=== PATIENT | male | born 1965 | race Caucasian/White ===

== ENCOUNTER 2024-06-05 16:46 | Emergency (ER) | payer BC, SELFPAY ==
[2024-06-05 16:49] VITALS: BP 128/84
[2024-06-05 17:26] LABS: % Basophils 0.7 % (0-2); % Eosinophils 1.7 % (0-6); % Immature Granulocytes 0.4 % (0-0.5); % Lymphocytes 25.7 % (20.5-51.1); % Monocytes 12.6 % (1.7-9.3); % Neutrophils 58.9 % (42.2-75.2); Absolute Eosinophils 0.1 10^3/uL (0-0.7); Absolute Lymphocytes 1.2 10^3/uL (1.2-3.4); Absolute Monocytes 0.6 10^3/uL (0.1-0.6); Absolute Neutrophils 2.7 10^3/uL (1.4-6.5); Hematocrit 46.4 % (39.0-52.0); Hemoglobin 15.1 g/dL (13.0-18.0); Mean Corp Hgb Conc. 32.5 g/dL (33.0-37.0); Mean Corpuscular Hgb 28.2 pg (27.0-31.0); Mean Corpuscular Volume 86.7 fL (80.0-94.0); Mean Platelet Volume 10.1 fL (7.4-10.4); Nucleated Red Blood Cells % 0 % (-); Platelet Count 203 10^3/uL (130-400); Red Blood Cell Count 5.35 10^6/uL (4.70-6.10); Red Cell Dist. Width 15.6 % (11.5-14.5); White Blood Cell Count 4.6 10^3/uL (4.8-10.8)
[2024-06-05 17:30] VITALS: BMI 35.2
[2024-06-05 17:31] VITALS: BP 148/94
[2024-06-05 17:33] LABS: ALT (SGPT) 54 U/L (0-50); AST (SGOT) 42 U/L (17-59); Albumin 4.2 g/dl (3.5-5.0); Alkaline Phosphatase 74 U/L (38-126); Blood Urea Nitrogen 16 mg/dl (9-20); Calcium 9.6 mg/dl (8.4-10.2); Carbon Dioxide 30 mmol/L (22-30); Chloride 100 mmol/L (98-107); Glucose 101 mg/dl (70-99); Potassium 3.5 mmol/L (3.5-5.1); Sodium 138 mmol/L (135-145); Total Bilirubin 0.6 mg/dl (0.2-1.3); Total Protein 6.6 g/dl (6.3-8.2)
[2024-06-05 17:44] LABS: Urine Albumin Negative (Neg - Trace); Urine Bilirubin Negative (Negative); Urine Character Clear (Clear); Urine Color Yellow; Urine Glucose Negative (Negative); Urine Ketone Negative (Negative); Urine Leukocyte Negative (Negative); Urine Nitrite Negative (Negative); Urine Occult Blood 4+ (Negative); Urine Urobilinogen Negative (Neg - 1+)
[2024-06-05 18:05] LABS: Urine Red Blood Cell 70-80 /HPF (0-2)
[2024-06-05 18:55] VITALS: BP 144/91
[2024-06-05 19:00] VITALS: BP 144/91
[2024-06-05 19:53] VITALS: BP 161/96
[2024-06-05 19:56] VITALS: BP 148/91
--- NOTE | 2024-06-05 20:34 | ED.GENMED ---
History of Present Illness
General
Chief Complaint: Male Genito-Urinary Symptoms
Time Seen by Provider: 06/05/24 17:36
History of Present Illness
History of Present Illness:
58-year-old male presents the emergency department for evaluation of grossly bloody urine. Feels as though it may have started yesterday however today it worsened and he is passing blood clots. Reports urinary urgency and frequency but denies any
difficulty voiding. Also reports bilateral low back pain. No fevers or chills. Does not take cholesterol medication and denies any recent severe exertion.
Past History
Past History
ED Past Medical History: HTN, Psychiatric (Severe panic attacks) and Other (DVT)
ED Past Surgical History: Orthopedic (R TKA)
Social History
Tobacco: Non-smoker
Alcohol: None
Drug: None
Personal:
Living: with family
Review of Systems
Review of Systems
Allergies reviewed?: Yes
All Other Systems: ROS reviewed and negative except as documented in HPI and ROS
Phy Exam
Physical Exam
Physical Exam:
GEN: Well appearing, NAD, WDWN
HEENT: Oral mucosa moist, no scleral icterus
Cardiac: Regular rate
Lung: No respiratory distress, no tachypnea
Abdomen: Soft, nontender
MSK: No gross deformity or injuries
Skin: Good color, no pallor or jaundice, no rashes
Neuro: AO x3, moves all extremities freely
Psych: Calm, cooperative
Course
Orders/Labs/Results
Orders:
Orders
06/05/24 17:02
Complete Blood Count/With Diff Urgent
Comprehensive Metabolic Panel Urgent
06/05/24 17:34
Urinalysis Reflex To Culture Urgent
Date Specimen was Collected: 06/05/24
Time Specimen was Collected: 16:53
Urine Microscopic Reflex Cult Urgent
06/05/24 17:57
CT Abd/pel Without Iv Or Oral Urgent
Comment:
Reason For Exam: BL flank pain/hematuria
06/05/24 20:34
Cefdinir [Omnicef] 300 mg PO NOW STA
Abnormal Lab Results
06/05/24 06/05/24
17:02 17:34
WBC 4.6 L 10^3/uL
(4.8-10.8)
MCHC 32.5 L g/dL
(33.0-37.0)
RDW 15.6 H %
(11.5-14.5)
Monocytes % 12.6 H %
(1.7-9.3)
Creatinine 1.5 H mg/dL
(0.7-1.3)
Glucose 101 H mg/dl
(70-99)
ALT 54 H U/L
(0-50)
Ur Occult Blood Reflex 4+ A
(Negative)
Urine RBC 70-80 A /HPF
(0-2)
06/05/24 17:02
06/05/24 17:02
Vital Signs
Initial and Last Documented VS:
Initial Vital Signs
Temp Pulse Resp BP Pulse Ox
98.1 F 105 18 128/84 96
06/05/24 16:49 06/05/24 16:49 06/05/24 16:49 06/05/24 16:49 06/05/24 16:49
Last Documented Vital Signs
Temp Pulse Resp BP Pulse Ox
98.4 F 82 18 148/91 96
06/05/24 19:00 06/05/24 19:56 06/05/24 20:00 06/05/24 19:56 06/05/24 20:00
MDM/Problems Addressed
MDM/Problems Addressed:
Likely hemorrhagic cystitis. Patient with less than 100 mL on postvoid residual. CT shows no evidence of obstructive uropathy. Will treat with broad-spectrum antibiotics
*Critical Care Note
Total Time (30-74mins, 75-104mins- exclusive of procedures): Not Applicable
ED Attending Note
-
Portions of this chart may have been created with voice recognition software.� Occasional wrong word or��sound alike� substitutions may have occurred due to the inherent limitations of voice recognition software.
Discharge Plan
Departure
Patient Disposition: Home (Routine Discharge)
Date of Disposition: 06/05/24
Time of Disposition: 20:35
Patient with high blood pressure during this ER visit?: No
Discharge Problem:
Acute hemorrhagic cystitis
Instructions: Blood in the Urine (Hematuria), Adult (DC)
Prescriptions:
New
cefdinir 300 mg capsule
300 mg PO BID Qty: 14 0RF
No Action
Flonase Nasal [place]:
intranasal DAILY
Klonopin
PO HS
Lisinopril
PO DAILY
Wellbutrin Regular Release:
PO DAILY
Zoloft
PO DAILY
prednisone 20 MG tablet
20 mg PO DAILY Qty: 6 0RF
Rx Instructions:
two tablets once a day for 3 days
amlodipine [Norvasc] 5 MG tablet
5 mg PO DAILY Qty: 14 0RF
Referrals:
Kiko Webster DO [Family Provider] -
Gee Flanagan MD [Active] -
Activity Restrictions/Additional Instructions:
I expect your bloody urine to resolve with the antibiotics however if it does not follow-up with urology for further evaluation
Your CT scan showed an incidental cyst on your liver that should get an outpatient follow-up MRI for further clarification
Interventions
Interventions:
*Risk Screen - Suicide Last Done: 06/05/24 16:52
*General Assessment Last Done: 06/05/24 16:52
*Neglect/Abuse Screening Last Done: 06/05/24 16:52
ED- Fall Risk Assessment Last Done: 06/05/24 17:30
*ED COVID-19 Vaccine History Last Done: 06/05/24 17:30
*Nursing Disposition Last Done: 06/05/24 20:38
ED-Male Genitourinary Assessment Last Done: 06/05/24 19:05
Discharge Date and Time
Print Language: MAORI
[2024-06-05] MEDS: OMNICEF 300 MG PO (20:37)
== END 2024-06-05 20:40 | disposition home or self-care (01) ==
LOC: EMR 16:46
PROVIDERS: Student in an Organized Health Care Education/Training Program; EMERGENCY PHYSICIAN Emergency Medicine; FAMILY PHYSICIAN Family Medicine
DX: N30.01 Acute cystitis with hematuria (principal); I10 Essential (primary) hypertension; Z86.718 Personal history of other venous thrombosis and embolism; Z96.659 Presence of unspecified artificial knee joint
CPT/HCPCS: 99284; 74176; 80053; 81003; 81015; 85025

== ENCOUNTER 2025-07-06 20:01 | Emergency (ER) | payer BC, SELFPAY ==
[2025-07-06 20:08] VITALS: BP 180/106
[2025-07-06 20:27] VITALS: BP 134/85
[2025-07-06 21:00] LABS: Hematocrit 50.8 % (39.0-52.0); Hemoglobin 17.2 g/dL (13.0-18.0); Mean Corp Hgb Conc. 33.9 g/dL (33.0-37.0); Mean Corpuscular Volume 89.1 fL (80.0-94.0); Nucleated Red Blood Cells % 0 % (-); Platelet Count 143 10^3/uL (130-400); Red Cell Dist. Width 16.4 % (11.5-14.5)
--- NOTE | 2025-07-06 21:06 | ED.GENMED ---
History of Present Illness
General
Chief Complaint: Chest Pain
Source: patient and records
Time Seen by Provider: 07/06/25 20:27
History of Present Illness
History of Present Illness:
59-year-old male with past medical history of hypertension presenting to the emergency department for evaluation of chest pain which he developed earlier today while laying down, was at the dentist at the time and his blood pressure was noted to be
elevated at around 190/130. Patient states for the last few weeks his blood pressure has been elevated and then after taking his medication will often go back down to a normal level. He states that again this evening when he went to go outside to
his car he noticed the pain. He reports playing [employer] with his son earlier today and was symptom-free at that time. Patient saw his bath steward/stewardess a few weeks ago and was started on prazosin, was told his EKG looked normal and that he could
return to the bath steward/stewardess in 1 year for regular follow-up. Presently patient states his symptoms are significantly improved, it was noted on arrival that his blood pressure was also significantly improved. He denies any shortness of breath,
visual disturbances, focal weakness or numbness, abdominal pain, nausea, vomiting, current headache or any other concerns. Patient did take all of his medications prior to arrival, notes that he normally takes these medications prior to bedtime.
Based off record review patient has had 2 exercise stress tests within the last 4 years with no abnormalities found. Also of note, patient is in the process of workup for possible rheumatologic condition, takes prednisone daily for joint pain, no
specified etiology at this time per patient after workup with rheumatology
Past History
Past History
ED Past Medical History: HTN, Psychiatric (Severe panic attacks) and Other (DVT)
ED Past Surgical History: Orthopedic (R TKA)
Social History
Tobacco: Non-smoker
Alcohol: None
Drug: None
Personal:
Living: with family
Review of Systems
Review of Systems
All Other Systems: ROS reviewed and negative except as documented in HPI and ROS
Phy Exam
Physical Exam
Physical Exam:
GENERAL: Alert , in no apparent distress
HEAD: Normocephalic atraumatic
EYE: conjunctiva clear
NECK: Supple
ENT: o/p clr, mmm.
CARDIAC: Regular rate and rhythm
LUNGS: Clear breath sounds bilaterally, no acute respiratory distress, no wheezes/rales/rhonchi
NEUROLOGICAL: Alert and oriented
SKIN: Warm and dry, skin intact.
MUSCULOSKELETAL: well perfused.
PSYCH: Normal and appropriate interaction.
Scores
Heart Failure Risk
Heart Failure Risk Score: Not Applicable
Heart Score for Chest Pain Patients
STEMI patient?: No
History: Slightly or Non-Suspicious
ECG: Normal
Age: >45 - <65 years
Risk Factors: 1 or 2 Risk Factors
Troponin: </= Normal Limit
Heart Score for Chest Pain Patients: 2
Heart Score Risk: 2.5% MACE over next 6 weeks
Withdrawal Assessment of Alcohol
Withdrawal Assessment Completed?: Not applicable
Course
Orders/Labs/Results
Orders:
Orders
07/06/25 20:07
Electrocardiogram (*1) Urgent
Reason for Study: Chest Pain
Other Reason for Exam: sob
EKG- Treatment ONCE
07/06/25 20:42
CMP [Comprehensive Metabolic Panel] Urgent
Troponin I Urgent
07/06/25 20:43
Complete Blood Count/With Diff Urgent
07/06/25 20:46
CR Chest - 2 Views Urgent
Comment:
Reason For Exam: chest pain
07/06/25 23:05
Troponin I Urgent
07/06/25 23:06
Electrocardiogram (*1) Urgent
Reason for Study: Chest Pain
EKG- Treatment ONCE
Abnormal Lab Results
07/06/25 07/06/25
20:42 20:43
RDW 16.4 H %
(11.5-14.5)
MPV 11.3 H fL
(7.4-10.4)
Abs Immat Gran (auto) 0.1 H 10^3/uL
(0-0.05)
Absolute Neuts (auto) 6.9 H 10^3/uL
(1.4-6.5)
Absolute Lymphs (auto) 1.0 L 10^3/uL
(1.2-3.4)
Absolute Monos (auto) 0.8 H 10^3/uL
(0.1-0.6)
Immature Gran % 0.7 H %
(0-0.5)
Neutrophils % 77.6 H %
(42.2-75.2)
Lymphocytes % 11.6 L %
(20.5-51.1)
Monocytes % 9.5 H %
(1.7-9.3)
Carbon Dioxide 32 H mmol/L
(22-30)
BUN 24 H mg/dl
(9-20)
Glucose 109 H mg/dl
(70-99)
ALT 52 H U/L
(0-50)
07/06/25 20:43
07/06/25 20:42
Vital Signs
Initial and Last Documented VS:
Initial Vital Signs
Temp Pulse Resp BP Pulse Ox
97.8 F 90 26 180/106 95
07/06/25 20:08 07/06/25 20:08 07/06/25 20:08 07/06/25 20:08 07/06/25 20:08
Last Documented Vital Signs
Temp Pulse Resp BP Pulse Ox
97.8 F 78 12 141/83 95
07/06/25 20:08 07/06/25 23:57 07/06/25 23:57 07/06/25 23:04 07/06/25 23:57
MDM/Problems Addressed
Differential Diagnosis Includes:
Uncontrolled hypertension
Hypertensive urgency
ACS/NSTEMI
PE/Dissection
Anxiety
GERD
Gastritis
MDM/Problems Addressed:
59-year-old male presenting to the emergency department for evaluation of elevated blood pressure and chest pain over the last few days, blood pressure has been elevated over the last few weeks. [facility] had added medication to patient's
regimen which he reports compliance with. Took medications prior to arrival and blood pressure is significantly improved presently. Patient symptoms are also mostly resolved. Will check labs including troponin, chest x-ray and reassess.
Discussed with patient that he would likely need to follow-up closely with cardiology to have blood pressure rechecked as well as to see if he will need any further testing although based off of patient's last stress test he had normal workup at
that time.
Chronic conditions affecting care: HTN
Acute Exacerbation and/or Progression of Chronic Illness: HTN
*Radiology
Radiology exam reviewed: preliminary read by ED provider (Normal chest x-ray)
*Pulse Oximetry
SaO2: 96
Oxygen Mode of Delivery: Room air
Patient hypoxic: no
*Reshipping Clerk Interpretation
Rate: normal
Heart Rate: 88
Rhythm: sinus
*Critical Care Note
Total Time (30-74mins, 75-104mins- exclusive of procedures): Not Applicable
Patient Management
Social determinants of health affecting care: Strong social support
Escalation/DeEscalation of care consider admission/obs:
Patient resting comfortably and in no acute distress. On multiple reevaluations his blood pressure remained significantly improved. Repeat EKG unchanged and his repeat troponin remains nondetectable. I did encourage the patient to contact his
primary care provider given the spikes in his blood pressure or he can also follow-up with his bath steward/stewardess. Aware of return precautions to the ER.
ED Attending Note
-
Portions of this chart may have been created with voice recognition software.� Occasional wrong word or��sound alike� substitutions may have occurred due to the inherent limitations of voice recognition software.
Discharge Plan
Departure
Patient Disposition: Home (Routine Discharge)
Date of Disposition: 07/06/25
Time of Disposition: 23:53
Patient with high blood pressure during this ER visit?: Yes
Discharge Problem:
Chest pain, Hypertension
Instructions: Chest Pain CBC Follow Up
Prescriptions:
No Action
Flonase Nasal [place]:
intranasal DAILY
Klonopin
PO HS
Lisinopril
PO DAILY
Wellbutrin Regular Release:
PO DAILY
Zoloft
PO DAILY
prednisone 20 MG tablet
20 mg PO DAILY Qty: 6 0RF
Rx Instructions:
two tablets once a day for 3 days
amlodipine [Norvasc] 5 MG tablet
5 mg PO DAILY Qty: 14 0RF
cefdinir 300 mg capsule
300 mg PO BID Qty: 14 0RF
Referrals:
UNKNOWN - PT DOES,NOT KNOW [Unknown Provider]
Interventions
Interventions:
*Risk Screen - Suicide Last Done: 07/06/25 20:08
*Neglect/Abuse Screening Last Done: 07/06/25 20:08
*Nursing Disposition Last Done: 07/07/25 00:02
ED- Cardiac Assessment Last Done: 07/06/25 20:45
ED- Pulmonary Assessment Last Done: 07/06/25 20:45
Discharge Date and Time
Discharge Date/Time: 07/07/25 00:02
Print Language: ISRAELI
[2025-07-06 21:07] LABS: ALT (SGPT) 52 U/L (0-50); AST (SGOT) 29 U/L (17-59); Albumin 4.5 g/dl (3.5-5.0); Alkaline Phosphatase 77 U/L (38-126); Blood Urea Nitrogen 24 mg/dl (9-20); Calcium 9.3 mg/dl (8.4-10.2); Carbon Dioxide 32 mmol/L (22-30); Chloride 100 mmol/L (98-107); Glucose 109 mg/dl (70-99); Potassium 3.6 mmol/L (3.5-5.1); Sodium 138 mmol/L (135-145); Total Protein 7.0 g/dl (6.3-8.2); eGFR > 60.00
[2025-07-06 21:18] LABS: Troponin I < 0.012 ng/ml
[2025-07-06 23:04] VITALS: BP 141/83
[2025-07-06 23:47] LABS: Troponin I < 0.012 ng/ml
== END 2025-07-07 00:02 | disposition home or self-care (01) ==
LOC: EMR 20:01
PROVIDERS: Emergency Medicine; Physician Assistant Medical; EMERGENCY PHYSICIAN Emergency Medicine; FAMILY PHYSICIAN Family Medicine
DX: R07.89 Other chest pain (principal); I10 Essential (primary) hypertension; F41.0 Panic disorder [episodic paroxysmal anxiety]; Z86.718 Personal history of other venous thrombosis and embolism; Z96.651 Presence of right artificial knee joint
CPT/HCPCS: 99284; 71046; 80053; 84484; 85025; 93005

== ENCOUNTER → 2025-07-21 13:53 | Outpatient (REF) | payer BC, SELFPAY | LOC: HWRCS 13:53 | PROVIDERS: ATTENDING PHYSICIAN Nurse Practitioner; FAMILY PHYSICIAN Family Medicine | DX: I10 Essential (primary) hypertension (principal); I51.7 Cardiomegaly | CPT/HCPCS: 93306 ==

== ENCOUNTER 2025-10-14 17:15 | Emergency (ER) | payer BC, SELFPAY ==
[2025-10-14 17:25] VITALS: BP 120/80
[2025-10-14 18:53] LABS: Hematocrit 51.2 % (39.0-52.0); Hemoglobin 17.9 g/dL (13.0-18.0); Mean Corp Hgb Conc. 35.0 g/dL (33.0-37.0); Mean Corpuscular Volume 92.6 fL (80.0-94.0); Nucleated Red Blood Cells % 0.4 % (-); Platelet Count 99 10^3/uL (130-400); Red Cell Dist. Width 13.1 % (11.5-14.5)
[2025-10-14 19:09] LABS: Blood Urea Nitrogen 23 mg/dl (9-20); Calcium 8.2 mg/dl (8.4-10.2); Carbon Dioxide 29 mmol/L (22-30); Chloride 98 mmol/L (98-107); Glucose 135 mg/dl (70-99); Sodium 133 mmol/L (135-145); eGFR > 60.00
--- NOTE | 2025-10-14 19:35 | ED.GENMED ---
History of Present Illness
<Letty Michelle PA-C - Last Filed: 10/14/25 21:31>
General
Chief Complaint: Skin Problem
Time Seen by Provider: 10/14/25 18:09
History of Present Illness
History of Present Illness:
Victoriano is a 60-year-old male with past medical history of hypertension, mood disorder who was recently started on Lamictal for racing thoughts presenting today for complaint of bilateral lower extremity rash that began 2 days ago. Denies any fevers
or chills. Was concerned about a potential drug rash after Google search about Lamictal.
Past History
<Letty Michelle PA-C - Last Filed: 10/14/25 21:31>
Past History
ED Past Medical History: HTN, Psychiatric (Severe panic attacks) and Other (DVT)
ED Past Surgical History: Orthopedic (R TKA)
Social History
Tobacco: Non-smoker
Alcohol: None
Drug: None
Personal:
Living: with family
Phy Exam
<Letty Michelle PA-C - Last Filed: 10/14/25 21:31>
General Physical Exam
General Presentation: well appearing and no apparent distress
General Skin: warm and dry
General Habitus: normal
General Mental: alert
General Hydration: appears well hydrated
ENT Exam
ENT Exam: EOMI, pharynx normal, neck supple and normocephalic
Eye Exam
Eye Exam: PERRL, cornea clear and conjunctiva normal
Cardiovascular Exam
Cardiovascular Exam: regular rate/rhythm, no edema, no murmur and normal peripheral pulses
Pulmonary Exam
Pulmonary Exam: lungs clear, no respiratory distress, no rales, no crackles, no rhonchi, no stridor, no wheezing and no cough
Gastrointestinal Exam
Gastrointestinal Exam: normal bowel sounds, non tender, soft, no organomegaly, no pulsatile mass and non distended
Neurological Exam
Neurological Exam: alert, oriented x3, no motor deficits and speech normal
Musculoskeletal Exam
Musculoskeletal Exam: full ROM, no edema and other (Erythematous area to left ankle and linear areas of erythema to the left calf as well as right thigh)
Skin Exam
Skin Exam: normal color, warm/dry, no rash and no petechia
Psychiatric Exam
Psychiatric Exam: normal mood/affect
Course
<Letty Michelle PA-C - Last Filed: 10/14/25 21:31>
Orders/Labs/Results
Orders:
Orders
10/14/25 18:39
Basic Metabolic Panel Urgent
Complete Blood Count/With Diff Urgent
10/14/25 18:45
US Periph Venous LOWER Ext Franki Urgent
Comment:
Reason For Exam: b/l leg redness, pain
Abnormal Lab Results
10/14/25
18:39
MCH 32.4 H pg
(27.0-31.0)
Plt Count 99 L 10^3/uL
(130-400)
MPV 10.6 H fL
(7.4-10.4)
Abs Immat Gran (auto) 0.1 H 10^3/uL
(0-0.05)
Absolute Monos (auto) 0.7 H 10^3/uL
(0.1-0.6)
Immature Gran % 0.6 H %
(0-0.5)
Lymphocytes % 15.7 L %
(20.5-51.1)
Sodium 133 L mmol/L
(135-145)
BUN 23 H mg/dl
(9-20)
Glucose 135 H mg/dl
(70-99)
Calcium 8.2 L mg/dl
(8.4-10.2)
10/14/25 18:39
10/14/25 18:39
Vital Signs
Initial and Last Documented VS:
Initial Vital Signs
Temp Pulse Resp BP Pulse Ox
36.8 C 95 14 120/80 95
10/14/25 17:25 10/14/25 17:25 10/14/25 17:25 10/14/25 17:25 10/14/25 17:25
Last Documented Vital Signs
Temp Pulse Resp BP Pulse Ox
36.8 C 95 14 120/80 95
10/14/25 17:25 10/14/25 17:25 10/14/25 17:25 10/14/25 17:25 10/14/25 19:35
<Kojo Phillips MD - Last Filed: 10/14/25 20:00>
Orders/Labs/Results
Orders:
Orders
10/14/25 18:39
Basic Metabolic Panel Urgent
Complete Blood Count/With Diff Urgent
10/14/25 18:45
US Periph Venous LOWER Ext Franki Urgent
Comment:
Reason For Exam: b/l leg redness, pain
Abnormal Lab Results
10/14/25
18:39
MCH 32.4 H pg
(27.0-31.0)
Plt Count 99 L 10^3/uL
(130-400)
MPV 10.6 H fL
(7.4-10.4)
Abs Immat Gran (auto) 0.1 H 10^3/uL
(0-0.05)
Absolute Monos (auto) 0.7 H 10^3/uL
(0.1-0.6)
Immature Gran % 0.6 H %
(0-0.5)
Lymphocytes % 15.7 L %
(20.5-51.1)
Sodium 133 L mmol/L
(135-145)
BUN 23 H mg/dl
(9-20)
Glucose 135 H mg/dl
(70-99)
Calcium 8.2 L mg/dl
(8.4-10.2)
10/14/25 18:39
10/14/25 18:39
Vital Signs
Initial and Last Documented VS:
Initial Vital Signs
Temp Pulse Resp BP Pulse Ox
36.8 C 95 14 120/80 95
10/14/25 17:25 10/14/25 17:25 10/14/25 17:25 10/14/25 17:25 10/14/25 17:25
Last Documented Vital Signs
Temp Pulse Resp BP Pulse Ox
36.8 C 95 14 120/80 95
10/14/25 17:25 10/14/25 17:25 10/14/25 17:25 10/14/25 17:25 10/14/25 19:35
<Letty Michelle PA-C - Last Filed: 10/14/25 21:31>
MDM/Problems Addressed
Differential Diagnosis Includes:
No leukocytosis on CBC.Bilateral lower extremity ultrasounds completed to rule out DVT and negative for any clots. Incidentally found to be thrombocytopenic on CBC. Does not take any antiplatelet medications. Informed patient of this finding he
should follow-up with his primary care physician regarding this. In regards to his lower extremity erythema/rash we will start him on a course of Keflex for potential lower extremity cellulitis. He will follow-up with his primary care physician as
well. Return precautions discussed. Instructed him to stop taking his Lamictal until follow-up with his primary care doctor.
<Letty Michelle PA-C - Last Filed: 10/14/25 21:31>
*Pulse Oximetry
SaO2: 95
Oxygen Mode of Delivery: Room air
Patient hypoxic: no
*Critical Care Note
Total Time (30-74mins, 75-104mins- exclusive of procedures): Not Applicable
ED Attending Note
<Letty Michelle PA-C - Last Filed: 10/14/25 21:31>
-
Portions of this chart may have been created with voice recognition software.� Occasional wrong word or��sound alike� substitutions may have occurred due to the inherent limitations of voice recognition software.
<Kojo Phillips MD - Last Filed: 10/14/25 20:00>
ED Attending Note
Patient seen and examined by attending physician: Yes
ED Attending Note:
I have seen and evaluated the patient with a [id number] encounter. I have spoken to the advance practicer provider and involved in the medical history, the physical exam, medical decision making.
Evaluation and management service: agree unless noted differently below.
Results interpretation: agree unless noted differently below.
Focused HPI: 60-year-old male with history as noted presents for evaluation of pain and redness in the legs. Patient reports that he recently started Lamictal and a few days later he noticed that he was starting to get some redness in the legs
mostly on the left. He has had some streaking redness up the left leg and started to notice some mild streaking up the right leg. He says he stopped only fill about a week ago but still not improving which prompted ER visit. He says that the red
area is warm and tender to the touch. He denies any other complaints such as fever or chills, chest pain shortness of breath or any other acute complaints.
Physical exam: Awake and alert, not in distress. Vital signs are normal. On exam of the left lower extremity he has erythema of the dorsum of the foot and streaking erythema up the medial aspect of the leg all the way to the thigh. He has a small
area of linear erythema on the medial right leg as well much less pronounced. No vesicular lesions or raised papules. He does have good pulses in the legs bilaterally, no palpable cords and no edema bilaterally.
Medical Decision Makin-year-old male presents for redness, pain in the legs left greater than right. He seems to think it is related to recent initiation of Lamictal although he says he stop Lamictal and it has not improved. This does not
appear consistent with SJS or other drug rash. Plan to check ultrasound of the legs to evaluate for DVT, cellulitis/lymphangitis I think is the likeliest diagnosis. If DVT study negative plan to treat with antibiotics on an outpatient basis at
least to start. Will need close follow-up.
Discharge Plan
Departure
Patient Disposition: Home (Routine Discharge)
Date of Disposition: 10/14/25
Time of Disposition: 21:10
Patient with high blood pressure during this ER visit?: No
Discharge Problem:
Cellulitis
Instructions: Cellulitis (Skin Infection), Adult (DC)
Prescriptions:
New
cephalexin 500 mg capsule
500 mg PO BID 7 Days Qty: 14 0RF
No Action
Flonase Nasal [place]:
intranasal DAILY
Klonopin
PO HS
Lisinopril
PO DAILY
Wellbutrin Regular Release:
PO DAILY
Zoloft
PO DAILY
prednisone 20 MG tablet
20 mg PO DAILY Qty: 6 0RF
Rx Instructions:
two tablets once a day for 3 days
amlodipine [Norvasc] 5 MG tablet
5 mg PO DAILY Qty: 14 0RF
cefdinir 300 mg capsule
300 mg PO BID Qty: 14 0RF
Referrals:
Kiko Webster DO [Family Provider, Family Practice]
Stand Alone Forms: Return to Work
Activity Restrictions/Additional Instructions:
Please follow-up with your primary care provider regarding your cellulitis versus rash. You should stop your Lamictal until this follow-up appointment.Incidentally while you are here your platelets were found to be low this should also be followed
up by your primary care doctor. It does not appear that you take any medications that could cause this to happen.
Interventions
Interventions:
*General Assessment Last Done: 10/14/25 19:29
*Neglect/Abuse Screening Last Done: 10/14/25 17:25
*ED COVID-19 Vaccine History Last Done: 10/14/25 19:29
*ED Influenza Vaccine History Last Done: 10/14/25 19:29
[facility] Fall Risk Assessment Tool Last Done: 10/14/25 19:29
*Risk Screen - Suicide (C-SSRS) Last Done: 10/14/25 17:25
ED-Skin Assessment Last Done: 10/14/25 18:43
Discharge Date and Time
Print Language: YAKUT
== END 2025-10-14 21:36 | disposition home or self-care (01) ==
LOC: EMR 17:15
PROVIDERS: Surgery Trauma Surgery; EMERGENCY PHYSICIAN Emergency Medicine; FAMILY PHYSICIAN Family Medicine
DX: L03.116 Cellulitis of left lower limb (principal); L03.115 Cellulitis of right lower limb; I10 Essential (primary) hypertension; F39 Unspecified mood [affective] disorder; F41.0 Panic disorder [episodic paroxysmal anxiety]; Z86.718 Personal history of other venous thrombosis and embolism; Z96.651 Presence of right artificial knee joint
CPT/HCPCS: 99284; 80048; 85025; 93970

== ENCOUNTER 2025-10-18 12:48 | Emergency (ER) | payer BC, SELFPAY ==
[2025-10-18 13:02] VITALS: BP 144/86
[2025-10-18 13:35] LABS: INR 1.19; PT 15.3 Sec (11.4-14.6)
[2025-10-18 13:38] LABS: ALT (SGPT) 34 U/L (0-50); AST (SGOT) 44 U/L (17-59); Albumin 3.6 g/dl (3.5-5.0); Alkaline Phosphatase 83 U/L (38-126); Blood Urea Nitrogen 18 mg/dl (9-20); Calcium 9.4 mg/dl (8.4-10.2); Carbon Dioxide 28 mmol/L (22-30); Chloride 100 mmol/L (98-107); Glucose 103 mg/dl (70-99); Potassium 3.9 mmol/L (3.5-5.1); Sodium 135 mmol/L (135-145); Total Protein 6.1 g/dl (6.3-8.2); eGFR > 60.00
[2025-10-18 13:43] LABS: Hematocrit 50.5 % (39.0-52.0); Hemoglobin 17.5 g/dL (13.0-18.0); Mean Corp Hgb Conc. 34.7 g/dL (33.0-37.0); Mean Corpuscular Volume 93.5 fL (80.0-94.0); Nucleated Red Blood Cells % 0 % (-); Platelet Count 71 10^3/uL (130-400); Red Cell Dist. Width 13.1 % (11.5-14.5)
[2025-10-18 13:49] LABS: Troponin I < 0.012 ng/ml
[2025-10-18 18:30] VITALS: BP 107/67; BMI 35.9
--- NOTE | 2025-10-18 18:38 | ED.GENMED ---
History of Present Illness
General
Chief Complaint: Skin Problem
Source: patient
Time Seen by Provider: 10/18/25 17:15
History of Present Illness
History of Present Illness:
This patient is a 60-year-old male presents emergency department with complaints of a rash that he first noted he thinks on or Sunday, mostly at his left foot, but then also involving bilateral legs. He does note recent Lamictal
initiation, but he then discontinued it, but his reaction not improved. He denies associated fever or chills. He was seen in the emergency department 4 days ago, was diagnosed with cellulitis, and started on Keflex. Since then, he notes that the
rash is progressing to now include the inner aspect of his thighs bilaterally and also his right antecubital fossa area. He denies drainage, chest pain, dyspnea, nausea, vomiting, fever, chills, bleeding, bruising, blistering, pain, itching, skin
tenderness, flulike symptoms, or other complaints. Patient admits that he has a history of oral kratom use, most recently about a month ago, and also is maintained on Suboxone. He also injects testosterone periodically. He denies any other
illicit drug use, and states that he has never injected any drugs including kratom. Of note, as per triage note patient was reporting chest pressure although he denies when asked by me.
Past History
Past History
ED Past Medical History: HTN, Psychiatric (Severe panic attacks) and Other (DVT)
ED Past Surgical History: Orthopedic (R TKA)
Social History
Tobacco: Non-smoker
Alcohol: None
Drug: Other (Kratom)
Personal:
Living: with family
Phy Exam
Physical Exam
Physical Exam:
GENERAL: Alert , in no apparent distress
EYE: pupils equal and reactive, conjunctive a pink, no photophobia
NECK: Supple, no significant adenopathy.
ENT: o/p clr, mmm, no mucosal abnormalities noted.
CARDIAC: Regular rate and rhythm .
LUNGS: Clear breath sounds bilaterally, no acute respiratory distress, no wheezes/rales/rhonchi
ABDOMEN: Soft, without focal tenderness, no r/g, no cvat
NEUROLOGICAL: Awake and oriented, no focal neuro deficits
SKIN: Warm and dry, skin intact. There is a nonspecific, asymmetric scattered macular rash noted mostly at lower extremities including medial aspect of thighs bilaterally and also right antecubital fossa area. No fluctuance, crepitus, bullae,
vesicles. Negative Nikolsky sign. No tenderness to palpation.
MUSCULOSKELETAL: No edema, well perfused. 2+ deeply ulcers bilaterally
PSYCH: Normal and appropriate interaction.
Course
Orders/Labs/Results
Orders:
Orders
10/18/25 13:04
Electrocardiogram (*1) Urgent
Reason for Study: Chest Pain
EKG- Treatment ONCE
CR Chest - 2 Views Urgent
Comment:
Reason For Exam: chest pain
10/18/25 13:16
Complete Blood Count/With Diff Urgent
Comprehensive Metabolic Panel Urgent
Pro-BNP [NT-proBNP] Urgent
Prothrombin Time Urgent
Troponin I Urgent
10/18/25 19:54
Prednisone [Deltasone] 30 mg PO NOW STA
Abnormal Lab Results
10/18/25
13:16
MCH 32.4 H pg
(27.0-31.0)
Plt Count 71 L D 10^3/uL
(130-400)
MPV 10.5 H fL
(7.4-10.4)
Abs Immat Gran (auto) 0.1 H 10^3/uL
(0-0.05)
Absolute Monos (auto) 1.2 H 10^3/uL
(0.1-0.6)
Immature Gran % 1.3 H %
(0-0.5)
Lymphocytes % 18.9 L %
(20.5-51.1)
Monocytes % 12.6 H %
(1.7-9.3)
PT 15.3 H Sec
(11.4-14.6)
Glucose 103 H mg/dl
(70-99)
Total Protein 6.1 L g/dl
(6.3-8.2)
10/18/25 13:16
10/18/25 13:16
Vital Signs
Initial and Last Documented VS:
Initial Vital Signs
Temp Pulse Resp BP Pulse Ox
98.8 F 100 17 144/86 99
10/18/25 13:02 10/18/25 13:02 10/18/25 13:02 10/18/25 13:02 10/18/25 13:02
Last Documented Vital Signs
Temp Pulse Resp BP Pulse Ox
98.0 F 100 18 115/56 92
10/18/25 18:30 10/18/25 20:33 10/18/25 20:33 10/18/25 20:33 10/18/25 20:33
*Pulse Oximetry
SaO2: 93
Oxygen Mode of Delivery: Room air
Patient hypoxic: no
*Critical Care Note
Total Time (30-74mins, 75-104mins- exclusive of procedures): Not Applicable
Update Note
Update Note:
Patient presents to the Emergency Department with __rash
Number and Complexity of Problems Addressed at the Encounter
� Chronic conditions affecting care:
� Acute Exacerbation and/or Progression of Chronic Illness:
� Differential Diagnosis includes:
Amount and/or Complexity of Data to be Reviewed and Analyzed
� I performed an independent evaluation of and my interpretation is:
EKG: Read by me, normal sinus rhythm, normal rate, axis deviation, no acute ischemia
CT:
Xrays:read by rads nad
Laboratory Studies: Increasing thrombocytopenia
Other:
� Review of other/old records reveals:
� Clinical information was obtained by an independent historian:
� Prescriptions/Medications Considered but not given:
� Further testing considered but not performed:
Risk of Complications and/or Morbidity or Mortality of Patient Management
� Social determinants of health affecting care:
� Discussion with other providers (PCP, Hospitalists, Consultants, etc):
� Escalation of care including admission/observation vs risk of discharge considered: Case discussed with Dr. Mendez from hematology aware of rash, medication list, recent visit, recent CBC, etc. Unclear if thrombocytopenia
related to medication or another cause such as a viral illness, etc. Recommends patient be started on oral steroids with repeat CBC within 1 week. I agree with this recommendation and suspect that it may help with his rash as well. Pt on 10mg
chronically will increase to 40mg now and taper. Patient's rash is not consistent with SJS/TE N, no mucosal involvement, no bullae, no vesicles, no skin tenderness, etc. etc. Ultrasound performed just a few days ago negative for DVT. No signs or
symptoms to suggest vascular occlusion, abscess, lymphangitis, etc. Patient not septic. He does appear to be anxious and describes a history of. Hr now 92. Of note, d/w pt import of f/u, reasons to rted, import of cbc recheck. He has a pcp to
do this.
ED Attending Note
-
Portions of this chart may have been created with voice recognition software.� Occasional wrong word or��sound alike� substitutions may have occurred due to the inherent limitations of voice recognition software.
Discharge Plan
Departure
Patient Disposition: Home (Routine Discharge)
Date of Disposition: 10/18/25
Time of Disposition: 19:45
Patient with high blood pressure during this ER visit?: Yes
Condition: Good
Discharge Problem:
Thrombocytopenia, Rash
Instructions: Skin Rash (DC), Essential Thrombocythemia, BLOOD PRESSURE
Prescriptions:
New
prednisone 10 mg tablet
10 mg PO DIRECTED Qty: 27 0RF
Rx Instructions:
40mg qdX3d, then 30mg npnuO0s, then 20mg po qdX3d, then resume 10mg po qd.
No Action
Flonase Nasal Reading:
intranasal DAILY
Klonopin
PO HS
Lisinopril
PO DAILY
Wellbutrin Regular Release:
PO DAILY
Zoloft
PO DAILY
prednisone 20 MG tablet
20 mg PO DAILY Qty: 6 0RF
Rx Instructions:
two tablets once a day for 3 days
amlodipine [Norvasc] 5 MG tablet
5 mg PO DAILY Qty: 14 0RF
cefdinir 300 mg capsule
300 mg PO BID Qty: 14 0RF
cephalexin 500 mg capsule
500 mg PO BID 7 Days Qty: 14 0RF
Referrals:
Kiko Webster DO [Family Provider, Family Practice] - Follow up in 2-3 days
Activity Restrictions/Additional Instructions:
IF YOU DEVELOP INCREASING/NEW RASH, FEVER, BLEEDING, BRUISING, CHEST PAIN, TROUBLE BREATHING, GET WORSE, DO NOT GET BETTER, OR OTHER WORRISOME SIGNS, GO TO THE ER IMMEDIATELY! YOU NEED TO HAVE YOUR PLATELET COUNT RECHECKED WITHIN THE WEEK.
Interventions
Interventions:
*General Assessment Last Done: 10/18/25 13:04
*Neglect/Abuse Screening Last Done: 10/18/25 13:04
*ED COVID-19 Vaccine History Last Done: 10/18/25 13:04
*ED Influenza Vaccine History Last Done: 10/18/25 13:04
[facility] Risk Assessment Tool Last Done: 10/18/25 20:48
*Risk Screen - Suicide (C-SSRS) Last Done: 10/18/25 13:04
*Nursing Disposition Last Done: 10/18/25 20:48
ED-Skin Assessment Last Done: 10/18/25 18:52
Discharge Date and Time
Discharge Date/Time: 10/18/25 20:49
Print Language: SPANISH
[2025-10-18] MEDS: DELTASONE 30 MG PO (20:29)
[2025-10-18 20:33] VITALS: BP 115/56
== END 2025-10-18 20:49 | disposition home or self-care (01) ==
LOC: EMR 12:48
PROVIDERS: Emergency Medicine; EMERGENCY PHYSICIAN Emergency Medicine; FAMILY PHYSICIAN Family Medicine
DX: D69.6 Thrombocytopenia, unspecified (principal); R21 Rash and other nonspecific skin eruption; R07.89 Other chest pain; I10 Essential (primary) hypertension; Z86.718 Personal history of other venous thrombosis and embolism
CPT/HCPCS: 99285; 71046; 80053; 83880; 84484; 85025; 85610; 93005